=== PATIENT | male | born 1940 | race Caucasian/White ===

== ENCOUNTER 2019-10-16 13:08 | Emergency (ER) | payer MEDICARE, OTHER ==
[~2019-10-16] VITALS: Ht 172.7 cm; Wt 87.2 kg
[2019-10-16] MEDS ORDERED: INVO300T (13:19)
[2019-10-16] MEDS ORDERED: ESCI10TA2 (13:19)
[2019-10-16] MEDS ORDERED: ATOR1TAB21 (13:19)
[2019-10-16] MEDS ORDERED: METF500T13 (13:19)
[2019-10-16 14:21] VITALS: BP 145/73
[2019-10-16] MEDS ORDERED: NEOSPORIN OINT 0.9 GM PKT As Ordered ONE (14:21)
[2019-10-16] MEDS ORDERED: NEOSPORIN OINT 0.9 GM PKT TOP ONE (14:30)
--- NOTE | 2019-10-16 16:27 | REP ---
LEFT HAND SERIES: Four views left hand performed. There appears to be a corner fracture of the 3rd distal phalanx medially. This extends into the distal interphalangeal joint. There may be a subtle hairline fracture of the distal aspect of the adjacent 3rd middle phalanx. No other acute fracture or dislocation is seen. There appears to be an old ulnar styloid fracture. There are vascular calcifications noted in the soft tissues of the wrist. There is mild radiocarpal joint space narrowing. There is mild diffuse narrowing of metacarpophalangeal joints and mild narrowing at the joint between the trapezium and base of 1st metacarpal. Moderate to severe diffuse narrowing is seen of proximal and distal interphalangeal joints with associated spurring and subchondral sclerosis. IMPRESSION: Degenerative changes as above. Nondisplaced corner fracture 3rd distal phalanx medially. Possible hairline nondisplaced fracture distal aspect of the 3rd middle phalanx. Electronically Signed by Jaime Murphy MD 10/19/2019 10:35 P
== END 2019-10-16 14:25 | disposition home or self-care (01) ==
LOC: M ED 13:08
DX: S62.653A Nondisplaced fracture of middle phalanx of left middle finger, initial encounter for closed fracture (principal); S60.222A Contusion of left hand, initial encounter; Y92.009 Unspecified place in unspecified non-institutional (private) residence as the place of occurrence of the external cause; Y93.9 Activity, unspecified; Y99.9 Unspecified external cause status; W23.1XXA Caught, crushed, jammed, or pinched between stationary objects, initial encounter; E11.9 Type 2 diabetes mellitus without complications; E78.5 Hyperlipidemia, unspecified; I10 Essential (primary) hypertension; Z79.84 Long term (current) use of oral hypoglycemic drugs; Z79.899 Other long term (current) drug therapy

== ENCOUNTER → 2021-04-29 | Outpatient (REF) | payer MEDICARE ==
[~2021-04-29] MED LIST: ATOR1TAB21; ESCI10TA16; INVO300T; METF500T13
[2021-04-29 17:57] LABS: MALB URINE SIEMENS 5.5 MG/L; MAU/CREAT RATIO 9.4 MCG/MG (0.0-30.0)
== END ==
LOC: M LAB REF 16:40
PROVIDERS: ATTEND Internal Medicine
DX: E11.65 Type 2 diabetes mellitus with hyperglycemia (principal); N18.31 Chronic kidney disease, stage 3a

== ENCOUNTER 2022-07-15 14:32 | Emergency (ER) | payer MEDICARE ==
[~2022-07-15] VITALS: Ht 172.7 cm; Wt 85.2 kg
[2022-07-15 14:32] VITALS: BP 178/91
[2022-07-15] MEDS ORDERED: NS 1,000 ML IV SCH (15:20)
[2022-07-15] MEDS ORDERED: METOCLOPRAMIDE INJ 10MG/2ML VIAL IV ONE (15:20)
[2022-07-15 15:42] LABS: BASO # 0.1 10^3/uL (0.0-0.2); BASO % 0.6 % (0.0-1.0); EOS # 0.3 10^3/uL (0.0-0.5); EOS % 3.3 % (0.0-3.0); HEMATOCRIT 44.1 % (42.0-52.0); HEMOGLOBIN 14.8 g/dl (13.5-17.5); LYMPH # 1.9 10^3/uL (1.5-5.0); LYMPH % 24.3 % (24.0-44.0); MEAN CORPUSCULAR HEMOGLOBIN 31.7 pg (27.0-33.0); MEAN CORPUSCULAR HGB CONC 33.6 g/dl (32.0-36.5); MEAN CORPUSCULAR VOLUME 94.4 fl (80.0-96.0); MONO # 0.8 10^3/uL (0.0-0.8); MONO % 10.5 % (2.0-8.0); NEUTROPHILS # 4.8 10^3/uL (1.5-8.5); NEUTROPHILS % 60.9 % (36.0-66.0); PLATELET COUNT, AUTOMATED 177 10^3/uL (150-450); RED BLOOD COUNT 4.67 10^6/uL (4.30-6.10); WHITE BLOOD COUNT 7.9 10^3/uL (4.0-10.0)
[2022-07-15 16:01] LABS: BLOOD UREA NITROGEN 17 MG/DL (9-23); CALCIUM LEVEL 8.6 MG/DL (8.3-10.6); CARBON DIOXIDE LEVEL 25 MMOL/L (20-31); CHLORIDE LEVEL 102 MMOL/L (98-107); CREATININE FOR GFR 0.75 MG/DL (0.70-1.30); GLOMERULAR FILTRATION RATE > 60.0 (>35); GLUCOSE, FASTING 291 MG/DL (74-106); POTASSIUM SERUM 4.2 MMOL/L (3.5-5.1); SODIUM LEVEL 136 MMOL/L (136-145)
== END 2022-07-15 18:59 | disposition home or self-care (01) ==
LOC: M ED 14:32
DX: R51.9 Headache, unspecified (principal); E11.9 Type 2 diabetes mellitus without complications; I10 Essential (primary) hypertension; F32.A Depression, unspecified; Z79.84 Long term (current) use of oral hypoglycemic drugs; Z79.899 Other long term (current) drug therapy
CPT/HCPCS: 70450; 71045; 80048; 84484; 85025; 93005; 93041; 94760; 96374; 99284; J2765

== ENCOUNTER → 2023-01-16 | Outpatient (REF) | payer MEDICARE ==
[2023-01-17 13:10] LABS: FOLATE 14.3 NG/ML (>5.4)
== END ==
LOC: M LAB REF 12:06
PROVIDERS: ATTEND Internal Medicine
DX: R41.81 Age-related cognitive decline (principal)